=== PATIENT | male | born 1965 | race Caucasian/White ===

== ENCOUNTER 2019-04-11 18:14 | Emergency (ER) | payer SELFPAY ==
[~2019-04-11] VITALS: Ht 162.6 cm; Wt 95.8 kg
[2019-04-11 18:19] VITALS: BP 197/103; PULSE 86; RESP 20; Ht 162.6 cm; Wt 95.8 kg
== END 2019-04-12 00:15 | disposition left against medical advice (07) ==
LOC: E/R 18:14
DX: Z53.21 Procedure and treatment not carried out due to patient leaving prior to being seen by health care provider (principal)